=== PATIENT | male | born 1990 | race Caucasian/White ===

== ENCOUNTER 2017-01-16 23:07 | Emergency (ER) | payer OTHER ==
[2017-01-16 23:50] LABS: BASOPHIL 0.7 % (0-2); EOSINOPHIL 1.3 % (0-5); HCT 46.4 % (42.0-52.0); HGB 16.2 g/dl (13.2-18.0); LYMPHOCYTE 29.1 % (15-48); MCH 32.5 pg (25.0-31.0); MCHC 34.9 g/dL (32.0-36.0); MCV 93.2 fL (78.0-100.0); MONOCYTE 6.8 % (0-12); MPV 9.6 fL (6.0-9.5); NEUTROPHIL 62.1 % (41-80); PLT 335 K/uL (150-400); RBC 4.98 M/uL (4.70-6.00); RDW 14.1 % (11.5-14.0); WBC 6.7 K/uL (4.0-10.5)
[2017-01-16 23:56] LABS: INR 0.91 (0.9-1.2); PROTHROMBIN TIME 11.9 SECONDS (11.7-14.0); PTT 25.6 SECONDS (23.2-31.4)
[2017-01-17 00:17] LABS: BENZODIAZEPINES NEGATIVE (NEGATIVE); COCAINE NEGATIVE (NEGATIVE)
[2017-01-17 00:18] LABS: AMPHETAMINES POSITIVE (NEGATIVE); BARBITURATES NEGATIVE (NEGATIVE); MARIJUANA (THC) POSITIVE (NEGATIVE); METHADONE NEGATIVE (NEGATIVE); TRICYCLIC ANTIDEPRESSANT NEGATIVE (NEGATIVE)
[2017-01-17 00:19] LABS: ALBUMIN 4.9 g/dL (3.5-5.0); BILIRUBIN - TOTAL 0.5 mg/dL (0.1-1.0); CKMB 4.21 ng/mL (0.97-4.94); GLOBULIN (CALCULATION) 2.7 g/dL (2.2-4.2); MAGNESIUM 2.21 mg/dL (1.40-2.10); MYOGLOBIN 524 ng/mL (26-65); POTASSIUM 3.8 mmol/L (3.5-5.1); PRO-BNP 37 pg/mL (0-125); TOTAL PROTEIN 7.6 g/dL (6.4-8.3); TROPONIN T < 0.010 ng/mL
== END 2017-01-17 00:40 ==
LOC: FER 23:07
PROVIDERS: Emergency Medicine
DX: R07.9 Chest pain, unspecified (principal); F17.200 Nicotine dependence, unspecified, uncomplicated
CPT/HCPCS: 36415; 71010; 80053; 80305; 82550; 82553; 83735; 83874; 83880; 84484; 85025; 85610; 85730; 93005